=== PATIENT | female | born 1950 | race African-American/Black ===

== ENCOUNTER 2024-03-16 18:39 | Emergency (ER) | payer MEDICAID, OTHER ==
[~2024-03-16] VITALS: Ht 165.1 cm; Wt 91.0 kg
[2024-03-16 18:40] VITALS: BP 160/49; PULSE 58; RESP 18; TEMP 98.3; O2SAT 99
[2024-03-16] MEDS: IBUPROFEN 600MG TABLET PO STA (19:39)
[2024-03-16] MEDS: ACETAMINOPHEN 325MG TABLET PO STA (19:39)
[2024-03-16 21:01] LABS: BASOPHILS % 0.5 % (0.0-2.0); EOSINOPHILS % 1.9 % (0.0-5.0); HEMOGLOBIN. 11.1 g/dL (12.0-16.0); LYMPHOCYTES % 24.2 % (20.0-50.0); MEAN CORPUSCULAR HEMOGLOBIN 31.6 pg (28.0-32.0); MEAN CORPUSCULAR HGB CONC 33.7 g/dL (31.0-37.0); MEAN CORPUSCULAR VOLUME 93.8 fL (81.0-99.0); MEAN PLATELET VOLUME 9.6 fl (7.4-10.4); MONOCYTES % 9.4 % (2.0-8.0); PLATELET 212 x1000/uL (130-400); RED BLOOD CELL COUNT 3.52 mill/uL (4.2-5.4); RED CELL DISTRIBUTION WIDTH 16.1 % (11.6-14.6); WHITE BLOOD COUNT 6.6 x1000/uL (4.5-11.0)
[2024-03-16 21:04] LABS: CHLORIDE 113 mEq/L (98-107); POTASSIUM 4.1 mEq/L (3.5-5.1); SODIUM 143 mEq/L (136-145)
[2024-03-16 21:05] LABS: CARBON DIOXIDE 25 mEq/L (21-32)
[2024-03-16 21:06] LABS: CALCIUM 9.6 mg/dL (8.7-10.4); INR 0.9; PROTHROMBIN TIME 10.3 sec (9.6-11.0)
[2024-03-16 21:11] LABS: CREATININE 1.3 mg/dL (0.6-1.0); GLUCOSE 104 mg/dL (70-105); TROPONIN I HIGH SENSITIVITY 19 ng/L (3.0-34); UREA NITROGEN BLOOD 29 mg/dL (9-23)
[2024-03-16 21:13] LABS: ALANINE AMINOTRANSFERASE 13 IU/L (10-49); ALBUMIN 4.1 g/dL (3.2-4.8); ASPARTATE AMINOTRANSFERASE 14 IU/L (<34); BILIRUBIN TOTAL 0.3 mg/dL (0.1-1.0); PROTEIN TOTAL 7.3 g/dL (6.0-8.3)
[2024-03-16 21:15] LABS: BILIRUBIN DIRECT < 0.1 mg/dL (<=3.0)
[2024-03-16 21:54] LABS: CLARITY URINE CLEAR (CLEAR); COLOR URINE YELLOW (YELLOW); GLUCOSE URINE NEGATIVE (NEGATIVE); KETONES URINE NEGATIVE (NEGATIVE); LEUKOCYTE ESTERASE URINE NEGATIVE (NEGATIVE); NITRITE URINE NEGATIVE (NEGATIVE); OCCULT BLOOD URINE NEGATIVE (NEGATIVE); PH URINE 5.5 (4.5-8.0); PROTEIN URINE NEGATIVE (NEGATIVE); SPECIFIC GRAVITY URINE 1.014 (1.005-1.030); UROBILINOGEN URINE 0.2 E.U./dL (0.2-1.0)
== END 2024-03-16 22:36 | disposition home or self-care (01) ==
LOC: ER 18:39
DX: K42.9 Umbilical hernia without obstruction or gangrene (principal); N28.9 Disorder of kidney and ureter, unspecified; E78.00 Pure hypercholesterolemia, unspecified; I10 Essential (primary) hypertension
CPT/HCPCS: 36415; 71045; 74176; 80048; 80076; 81003; 84484; 85025; 93005; 99285